=== PATIENT | male | born 1980 ===

== ENCOUNTER 2019-05-12 10:19 | Emergency (ER) | payer OTHER ==
[~2019-05-12] VITALS: Ht 188 cm; Wt 108.9 kg
[2019-05-12] MEDS ORDERED: CITALOPRAM HBR20 MG PO (10:30)
[2019-05-12] MEDS ORDERED: METOPROLOL SUC100 MG PO (10:30)
[2019-05-12] MEDS ORDERED: ATIVAN0.5 MG PO (12:24)
--- NOTE | 2019-05-12 13:21 | EKG ---
[facility] [address] [facility] [place] [address] Signed Normal sinus rhythm Minimal voltage criteria for LVH, may be normal variant Borderline ECG No previous ECGs available Confirmed by CORY CANTU MD ([id number] on 05/12/2019 1:21:15 PM Electronically Signed By: CORY CANTU MD 05/12/19 1321 PATIENT NAME: CHRISSIE FERGUSON Electrocardiogram DATE OF : 76 PHYSICIAN: CORY CANTU MD REPORT #: [id number] REPORT IS CONFIDENTIAL AND NOT TO BE RELEASED WITHOUT AUTHORIZATION
== END 2019-05-12 12:48 | disposition home or self-care (01) ==
LOC: ED 10:19
DX: R07.89 Other chest pain (principal); I10 Essential (primary) hypertension; F17.200 Nicotine dependence, unspecified, uncomplicated; Z79.899 Other long term (current) drug therapy
CPT/HCPCS: 71045; 80053; 83735; 84484; 85025; 93005; 93010; 99285-25